=== PATIENT | female | born 1980 | race Caucasian/White ===

== ENCOUNTER → 2017-05-06 | Outpatient (CLI) | payer OTHER | END | disposition home or self-care (01) | LOC: NUC 12:08 | DX: R93.7 Abnormal findings on diagnostic imaging of other parts of musculoskeletal system (principal) | CPT/HCPCS: 78018; 78020; 78999; A9509 ==

== ENCOUNTER → 2017-05-12 | Outpatient (CLI) | payer OTHER | END | disposition home or self-care (01) | LOC: NUC 11:00 | DX: C73 Malignant neoplasm of thyroid gland (principal) | CPT/HCPCS: 78306; A9503 ==

== ENCOUNTER → 2017-06-16 | Outpatient (CLI) | payer OTHER | END | disposition home or self-care (01) | LOC: NUC 11:00 | PROC: DWY5GDZ Isotope Administration to Whole Body using Iodine 131 (I-131) (ICD-10-PCS; principal; 2017-06-16) | DX: C73 Malignant neoplasm of thyroid gland (principal) | CPT/HCPCS: 79005; A9517 ==

== ENCOUNTER → 2017-06-23 | Outpatient (CLI) | payer OTHER | END | disposition home or self-care (01) | LOC: NUC 10:00 | DX: R93.8 Abnormal findings on diagnostic imaging of other specified body structures (principal) | CPT/HCPCS: 78018 ==